=== PATIENT | female | born 1960 | race Caucasian/White ===

== ENCOUNTER 2017-12-17 06:36 | Day surgery (SDC) | payer BC, OTHER ==
[~2017-12-17 06:36] MED LIST: Buffered Lidocaine 0.9% SYRIN* 5 ML/SYR SYRINGE INTRADERM ONE; Dexamethasone IV* 4 MG/ML 1 ML (4 MG) IV SLOW PU ONE; Famotidine IV* 10 MG/ML 2 ML (20 mg) IV ONE
[2017-12-17] MEDS ORDERED: Famotidine IV* 10 MG/ML 2 ML (20 mg) ONE (06:41)
[2017-12-17] MEDS ORDERED: Dexamethasone IV* 4 MG/ML 1 ML (4 MG) ONE (06:41)
[2017-12-17] MEDS ORDERED: Midazolam* 1 MG/ML 2 ML VIAL (2 MG) ONE ×2 (08:11→08:27)
[2017-12-17] MEDS ORDERED: fentaNYL* 50 MCG/ML 2 ML VIAL (100 MCG VIAL) ONE (08:11)
[2017-12-17] MEDS ORDERED: Naloxone* 0.4 MG/ML 1 ML VIAL IV PRN (08:28)
[2017-12-17] MEDS ORDERED: HYDROcodone/ACETAMIN 5-325 MG* 1 TAB PO PRN (08:28)
[2017-12-17] MEDS ORDERED: oxyCODONE/Acetamin 5/325 MG* TAB PO PRN (08:28)
[2017-12-17] MEDS ORDERED: DiMENhydriNATE IV* 50 MG/ML VIAL IV PUSH PRN (08:28)
[2017-12-17] MEDS ORDERED: Ketorolac INJ* 30 MG/ML 1 ML VIAL IV PRN (08:28)
[2017-12-17] MEDS ORDERED: fentaNYL* 50 MCG/ML 2 ML VIAL (100 MCG VIAL) IV PRN (08:28)
[2017-12-17] MEDS ORDERED: Chloroprocaine 2%* 20 ML VIAL ONE (08:35)
[2017-12-17] MEDS ORDERED: Ondansetron INJ* 2 MG/ML VIAL ONE (09:01)
[2017-12-17 11:03] VITALS: BP 144/85
--- NOTE | 2017-12-17 18:53 | OP ---
OPERATIVE REPORT: DATE OF OPERATION: 12/17/17 DATE OF : 64 SURGEON: Ana Paula Young MD TORQUE TESTER: Dr. Lima. ANESTHESIOLOGIST: Dr. Cruz. ANESTHESIA: Spinal. PRE-OP DIAGNOSIS: Postmenopausal bleeding. POST-OP DIAGNOSES: Postmenopausal bleeding and endometrial polyp. OPERATIVE PROCEDURE: Dilation and curettage and MyoSure hysteroscopic resection. ESTIMATED BLOOD LOSS: Minimal. URINE OUTPUT: 800 mL of clear yellow urine. FLUIDS: 850 mL of crystalloid deficit, 475 mL. FINDINGS: Revealed a large endometrial polyp occupying the entire uterine cavity, normal tubal ostia seen, polyp extending down to external cervical os. COMPLICATIONS: None apparent. DISPOSITION: Stable to recovery room. DESCRIPTION OF PROCEDURE: The patient was placed in dorsal lithotomy position. The perineum and vagi na were prepped and draped in the sterile standard fashion. The patient was placed in [place] janet stirrups. The abdomen, perineum and vagina were prepped and draped in the sterile standard fashi on. The patient was identified with universal protocol, drainage for clear yellow urine 800 mL with self cath. Self cath was removed, sterile speculum inserted, cervix was grasped in the anterior lip with a single tooth tenaculum and dilated to a #9 Charissa dilator. A MyoSure hysteroscope was inserted, polyp was seen extending into and down as far to the external cervical os and it appeared to be cedrick ched on the posterior and left uterine wall. Occupying the entire uterine cavity, both tubal ostia w ere seen. At that point, a MyoSure XL was placed for complete removal of the endometrial polyp. A s harp curettage was performed after removal of the hysteroscope and single-toothed tenaculum was remov ed. All sponge, instrument and blade counts were correct throughout the case. The patient tolerated the procedure well and went to recovery room in stable condition. [id number]/[facility] #: [id number]
== END 2017-12-17 11:04 | disposition home or self-care (01) ==
LOC: OR 06:36
PROVIDERS: ATTEND Obstetrics & Gynecology
DX: N95.0 Postmenopausal bleeding (principal); N84.0 Polyp of corpus uteri; J45.909 Unspecified asthma, uncomplicated
CPT/HCPCS: 88305; J1100; J2250; J2400; J2405; J3010